=== PATIENT | male | born 1995 | race African-American/Black ===

== ENCOUNTER 2017-09-03 12:45 | Emergency (ER) | payer SELFPAY ==
[~2017-09-03] VITALS: Ht 170.2 cm; Wt 69.0 kg
[2017-09-03 12:51] VITALS: BP 131/79; PULSE 118; RESP 16; TEMP 100.4; O2SAT 99
[2017-09-03] MEDS ORDERED: SODIUM CHLOR 0.9% 1000 ML INJ 1,000 ML IV SCH (12:56)
--- NOTE | 2017-09-03 12:58 | PD ---
HPI Chief Complaint: Oral / Dental Pain or Problem Time Seen by Provider: 12:50 Travel History International Travel<30 days: No Contact w/Intl Traveler<30days: No Traveled to known affect area: No History of Present Illness HPI 22-year-old male presents for evaluation of sore throat. Symptoms started 2-3 days ago. It hurts to swallow. Unrelieved with DayQuil, Benadryl. He has had low-grade fevers as high as 100.3 at home. He denies cough, congestion, rash, recent travel, chest pain, shortness of breath, nausea or vomiting. He reports that he has had tonsillitis multiple times in the past and this feels similar. He has no other complaints at this time. [facility] Past Medical History Medical History: Denies Significant Hx Hx Anticoagulant Therapy: No Cardiovascular Problems: No Chemotherapy: No Cerebrovascular Accident: No Diabetes: No Respiratory: Yes (ASTHMA) Past Surgical History Hysterectomy: No Social History Tobacco Use: Yes Allergies-Medications (Allergen,Severity, Reaction): Coded Allergies: No Known Allergies (Unverified , 09/03/17) Reported Meds & Prescriptions Reported Meds & Active Scripts Active No Active Prescriptions or Reported Medications Review of Systems Except as stated in HPI: all other systems reviewed are Neg Physical Exam Narrative GENERAL: Well-nourished male in no acute distress SKIN: Warm and dry. HEAD: Atraumatic. Normocephalic. EYES: Pupils equal and round. No scleral icterus. No injection or drainage. ENT: No nasal bleeding or discharge. Mucous membranes pink and moist. There is oropharyngeal erythema, tonsils bilaterally are edematous. There is no peritonsillar abscess. There is no stridor or drooling. NECK: Trachea midline. No JVD. Tender anterior cervical lymphadenopathy. Neck supple full range of motion. CARDIOVASCULAR: Regular rate and rhythm. No murmur appreciated. RESPIRATORY: No accessory muscle use. Clear to auscultation. Breath sounds equal bilaterally. GASTROINTESTINAL: Abdomen soft, non-tender, nondistended. Hepatic and splenic margins not palpable. Data Data Last Documented VS Vital Signs Date Time Temp Pulse Resp B/P (MAP) Pulse Ox O2 Delivery O2 Flow Rate FiO2 09/03/17 12:51 100.4 118 16 131/79 (96) 99 Orders Orders Sodium Chlor 0.9% 1000 Ml Inj (Ns 1000 M (09/03/17 12:56) Group A Rapid Strep Screen (09/03/17 12:56) Ketorolac Inj (Toradol Inj) (09/03/17 13:00) Dexamethasone Inj (Decadron Inj) (09/03/17 13:00) Penicillin G Benzathine Inj (Bicillin L- (09/03/17 14:00) Ed Discharge Order (09/03/17 14:28) MDM Medical Decision Making Medical Screen Exam Complete: Yes Emergency Medical Condition: Yes Medical Record Reviewed: Yes Differential Diagnosis Pharyngitis, tonsillitis, peritonsillar abscess, infectious mononucleosis, herpangina, epiglottitis, retropharyngeal abscess Narrative Course 22-year-old male here with sore throat and low-grade fevers. On examination he has obvious tonsillitis without exudate. The patient will be given IV fluids, Toradol, Decadron. Rapid strep screen was performed and it is positive. The patient feels improved after the administration of medication and he is tolerating oral hydration. The patient will be given a intramuscular dose of penicillin G benzathine. He is stable for discharge. Diagnosis Primary Impression: Tonsillitis Additional Instructions: Take Tylenol and Motrin as needed for fever and pain per dosing instructions on the bottle [id number]. Stay well hydrated and well-nourished. Follow-up with primary care physician as needed. Return for any emergent medical conditions. Med/Other Pt SpecificInfo: No Change to Meds Scripts No Active Prescriptions or Reported Meds Disposition: 01 DISCHARGE HOME Condition: Stable Carlton Lopez Sep 03, 2017 12:58
[2017-09-03] MEDS ORDERED: KETOROLAC TROMETHAMINE 30 MG/ML (IVP) VIAL IV PUSH ONE (13:00)
[2017-09-03] MEDS ORDERED: DEXAMETHASONE SOD PHOS 4 MG/ML VIAL IV PUSH ONE (13:00)
[2017-09-03 13:56] VITALS: RESP 16
[2017-09-03] MEDS ORDERED: PENICILLIN G BENZATHINE 1,200,000 UNITS/2 ML SYRINGE IM ONE (14:00)
[2017-09-03 16:10] VITALS: BP 128/76
== END 2017-09-03 16:12 | disposition home or self-care (01) ==
LOC: NEPD 12:45
DX: J03.90 Acute tonsillitis, unspecified (principal); J45.909 Unspecified asthma, uncomplicated; Z72.0 Tobacco use
CPT/HCPCS: 87880; 96361; 96372; 96374; 96375; 99284; J0561; J1100; J1885; J7030